=== PATIENT | female | born 1955 | race Caucasian/White ===

== ENCOUNTER 2016-10-02 11:27 | Emergency (ER) | payer OTHER ==
[~2016-10-02] VITALS: Ht 149.8 cm; Wt 88.5 kg
[~2016-10-02 11:27] MED LIST: AVPAK AZITHROM250 M1 PO; BACTRIM DS 8001 TA1 PO; CIPRO500 MG PO; CLARITIN10 MG PO; CLINDAMYCIN150 MG PO; FLUTICASON0.05 MG/AC NAS; KEFLEX500 MG; KEFLEX500 MG PO; LISINOPRIL10 M1 PO; MEDROL DOSEPAK4 MG PO; MOTRIN800 MG PO; PROTONIX40 MG/PACK PO; ROBITUSSIN AC 110 ML PO; ZITHROMAX Z PA250 MG PO; ZITHROMAX250 MG PO; ZOFRAN ODT4 MG SL; ZOFRAN4 MG PO
[2016-10-02] MEDS ORDERED: NAPROSYN500 MG PO (12:02)
== END 2016-10-02 13:36 | disposition home or self-care (01) ==
LOC: ED 11:27
DX: S40.011A Contusion of right shoulder, initial encounter (principal); I10 Essential (primary) hypertension; W19.XXXA Unspecified fall, initial encounter; Y93.9 Activity, unspecified; Y92.9 Unspecified place or not applicable; Y99.9 Unspecified external cause status

== ENCOUNTER 2017-06-07 14:35 | Emergency (ER) | payer OTHER ==
[~2017-06-07] VITALS: Ht 149.8 cm; Wt 87.1 kg
[~2017-06-07 14:35] MED LIST changes: +NAPROSYN500 MG PO
[2017-06-07] MEDS ORDERED: LIDEX 0.05% CRE15 GM T (15:26)
[2017-06-07] MEDS ORDERED: CEPHALEXIN500 M1 PO (15:26)
== END 2017-06-07 15:50 | disposition home or self-care (01) ==
LOC: ED 14:35
DX: L08.9 Local infection of the skin and subcutaneous tissue, unspecified (principal)

== ENCOUNTER 2018-03-06 08:57 | Emergency (ER) | payer OTHER ==
[~2018-03-06] VITALS: Ht 149.8 cm; Wt 131.5 kg
[~2018-03-06 08:57] MED LIST changes: +CEPHALEXIN500 M1 PO; +LIDEX 0.05% CRE15 GM T
[2018-03-06] MEDS ORDERED: DELTASONE20 M1 PO (09:36)
[2018-03-06] MEDS ORDERED: CLARITIN10 MG PO (09:36)
== END 2018-03-06 10:29 | disposition home or self-care (01) ==
LOC: ED 08:57
DX: L23.9 Allergic contact dermatitis, unspecified cause (principal); I10 Essential (primary) hypertension; E78.00 Pure hypercholesterolemia, unspecified

== ENCOUNTER → 2018-04-27 | Outpatient (CLI) | payer OTHER ==
[~2018-04-27] MED LIST changes: +DELTASONE20 M1 PO
== END | disposition home or self-care (01) ==
LOC: MAMMO 08:31
DX: Z12.31 Encounter for screening mammogram for malignant neoplasm of breast (principal)

== ENCOUNTER 2019-04-08 12:27 | Emergency (ER) | payer OTHER ==
[~2019-04-08] VITALS: Ht 149.8 cm; Wt 94.8 kg
--- NOTE | ~2019-04-08 | EKG ---
[place], [place] ELECTROCARDIOGRAM REPORT NAME: PAM GUARDADO UNIT #: [id number] ROOM: DOCTOR: ENRIQUE DRAFT REPORT BIRTHDATE: [birth year] [facility] Test Date: 2019-04-08 Test Time: 12:34:34 Pat Name: PAM GUARDADO Department: Room: Gender: F Independent Marketing Consultant: Karime Hubbard : 1955 Requested By: DANIELA APARICIO Order Number: [id number] Reading MD: Davy Drake MD Measurements Intervals [place] Rate: 85 P: 45 WA: 153 QRS: -19 QRSD: 78 T: 5 QT: 383 QTc: 456 Interpretive Statements Sinus rhythm Left ventricular hypertrophy Inferior infarct, old Anterior Q waves, possibly due to LVH Electronically Signed On 04-11-2019 4:08:54 PDT by Davy Drake MD CM:EKGRPT:ELECTROCARDIOGRAM REPORT [id number] DANIELA NUNEZ DRAFT REPORT DANIELA APARICIO M.D.
[2019-04-08] MEDS ORDERED: NAPROXEN500 MG PO (12:43)
[2019-04-08] MEDS ORDERED: VITAMIN D31000 UNI1 PO (12:44)
[2019-04-08 13:08] LABS: BASO % 0.4 % (0.0-1.0); EOS # 0.1 10*3/uL (0.0-0.4); EOS % 1.7 % (1.0-4.0); HEMATOCRIT 43.7 % (37.0-47.0); HEMOGLOBIN 14.2 g/dl (12.0-16.0); LYMPH # 1.2 10*3/uL (1.3-4.4); LYMPH % 17.7 % (27.0-41.0); MEAN CELL VOLUME 93.2 fl (81.0-99.0); MEAN CORPUSCULAR HGB 30.3 pg (27.0-31.0); MEAN CORPUSCULAR HGB CONC 32.5 g/dl (33.0-37.0); MEAN PLATELET VOLUME 11.5 fl (9.6-12.3); MONO # 0.6 10*3/uL (0.1-1.0); MONO % 9.1 % (3.0-9.0); NEUT # 4.9 10*3/uL (2.3-7.9); NEUT % 70.8 % (47.0-73.0); PLATELET COUNT AUTOMATED 229 10*3/uL (130-400); RED BLOOD COUNT 4.69 10*6/uL (4.10-5.10); RED CELL DISTRI WIDTH 13.4 % (0-14.5)
[2019-04-08 13:21] LABS: ALBUMIN 3.3 gm/dl (3.1-4.5); ALKALINE PHOSPHATASE 114 U/L (45-117); BUN 17 mg/dl (7-24); CHLORIDE 108 mmol/L (98-107); CREATININE 0.75 mg/dL (0.55-1.02); POTASSIUM 3.8 mmol/L (3.5-5.1); SGOT/AST 17 IU/L (3-35); SGPT/ALT 22 U/L (12-78); SODIUM 140 mmol/L (136-145); TOTAL PROTEIN 6.8 gm/dL (6.4-8.2)
[2019-04-08 13:22] LABS: TROPONIN I < 0.015 ng/ml (<0.045)
== END 2019-04-08 14:01 | disposition home or self-care (01) ==
LOC: ED 12:27
PROVIDERS: Emergency Medicine
DX: R55 Syncope and collapse (principal); H53.8 Other visual disturbances; I10 Essential (primary) hypertension; Z79.899 Other long term (current) drug therapy

== ENCOUNTER → 2019-05-03 | Outpatient (CLI) | payer OTHER ==
[~2019-05-03] MED LIST changes: +NAPROXEN500 MG PO; +VITAMIN D31000 UNI1 PO
== END | disposition home or self-care (01) ==
LOC: MAMMO 09:18
DX: Z12.31 Encounter for screening mammogram for malignant neoplasm of breast (principal); M81.0 Age-related osteoporosis without current pathological fracture

== ENCOUNTER 2021-01-02 22:46 | Inpatient (IN) | payer OTHER ==
[~2021-01-02] VITALS: Ht 149.8 cm; Wt 90.7 kg
[2021-01-02 23:03] VITALS: BP 170/80
[2021-01-02 23:36] LABS: BASO % 0.2 % (0.0-1.0); HEMATOCRIT 46.8 % (37.0-47.0); LYMPH # 0.8 10*3/uL (1.3-4.4); LYMPH % 4.2 % (27.0-41.0); MEAN CORPUSCULAR HGB 29.4 pg (27.0-31.0); MEAN CORPUSCULAR HGB CONC 32.7 g/dl (33.0-37.0); MEAN PLATELET VOLUME 10.6 fl (9.6-12.3); MONO # 1.2 10*3/uL (0.1-1.0); MONO % 6.1 % (3.0-9.0); NEUT # 17.7 10*3/uL (2.3-7.9); PLATELET COUNT AUTOMATED 273 10*3/uL (130-400); RED CELL DISTRI WIDTH 13.1 % (0-14.5); WHITE BLOOD COUNT 19.9 10*3/uL (4.8-10.8)
[2021-01-02 23:51] LABS: ALBUMIN 3.2 gm/dl (3.1-4.5); ALKALINE PHOSPHATASE 118 U/L (45-117); BUN 10 mg/dl (7-24); CHLORIDE 104 mmol/L (98-107); CREATININE 0.83 mg/dL (0.55-1.02); LIPASE 68 U/L (73-393); POTASSIUM 3.5 mmol/L (3.5-5.1); SGOT/AST 10 IU/L (3-35); SGPT/ALT 23 U/L (12-78); SODIUM 136 mmol/L (136-145); TOTAL PROTEIN 7.3 gm/dL (6.4-8.2)
[2021-01-02 23:54] LABS: BILIRUBIN Negative (Negative); BLOOD Negative (Negative); CLARITY Clear (Clear); COLOR Orange (Yellow); GLUCOSE Negative (Negative); KETONE 1+ (Negative); LEUKO ESTERASE 1+ (Negative); NITRITE Negative (Negative); PH 5.5 (4.5-8.0); SPECIFIC GRAVITY 1.015 (1.001-1.030); UROBILINOGEN 0.2 E.U./dl (0.0-1.0)
[2021-01-03] VITALS (7 sets, daily range): BP systolic 136–162; BP diastolic 72–93
[2021-01-03] MEDS ORDERED: LISINOPRIL10 M1 PO (02:51)
[2021-01-03] MEDS ORDERED: VITAMIN D350 MC3 PO (02:53)
[2021-01-03 06:08] LABS: ALBUMIN 2.5 gm/dl (3.1-4.5); BUN 8 mg/dl (7-24); CHLORIDE 109 mmol/L (98-107); POTASSIUM 3.4 mmol/L (3.5-5.1); SODIUM 139 mmol/L (136-145)
[2021-01-03 06:14] LABS: ALKALINE PHOSPHATASE 91 U/L (45-117); CHOLESTEROL 122 mg/dL (<200); CREATININE 0.64 mg/dL (0.55-1.02); FREE T4 1.21 ng/dl (0.76-1.46); HDL CHOLESTEROL 58 mg/dl (40-60); LDL CHOLESTEROL 56 mg/dL (9-159); SGPT/ALT 18 U/L (12-78); THYROID STIM HORMONE (HS) 0.475 uIU/ml (0.358-4.75); TRIGLYCERIDES 41 mg/dl (<150); VLDL CHOLESTEROL 8 mg/dL (6-40)
[2021-01-03 06:26] LABS: BASO % 0.2 % (0.0-1.0); EOS % 0.1 % (1.0-4.0); HEMATOCRIT 40.6 % (37.0-47.0); LYMPH # 1.5 10*3/uL (1.3-4.4); LYMPH % 10.4 % (27.0-41.0); MEAN CELL VOLUME 92.5 fl (81.0-99.0); MEAN CORPUSCULAR HGB 29.8 pg (27.0-31.0); MEAN CORPUSCULAR HGB CONC 32.3 g/dl (33.0-37.0); MEAN PLATELET VOLUME 11.3 fl (9.6-12.3); MONO # 1.2 10*3/uL (0.1-1.0); MONO % 7.8 % (3.0-9.0); NEUT # 11.9 10*3/uL (2.3-7.9); NEUT % 81.2 % (47.0-73.0); PLATELET COUNT AUTOMATED 217 10*3/uL (130-400); RED BLOOD COUNT 4.39 10*6/uL (4.10-5.10); RED CELL DISTRI WIDTH 13.1 % (0-14.5); WHITE BLOOD COUNT 14.7 10*3/uL (4.8-10.8)
[2021-01-03 06:47] LABS: SGOT/AST < 3 IU/L (3-35)
[2021-01-03 08:02] LABS: VITAMIN D, 25-HYDROXY 24.1 ng/mL (30-100)
[2021-01-04] VITALS: BP 131/80
[2021-01-04 04:48] LABS: BASO % 0.2 % (0.0-1.0); EOS # 0.1 10*3/uL (0.0-0.4); EOS % 1.7 % (1.0-4.0); HEMATOCRIT 39.4 % (37.0-47.0); LYMPH # 1.2 10*3/uL (1.3-4.4); LYMPH % 14.5 % (27.0-41.0); MEAN CELL VOLUME 92.5 fl (81.0-99.0); MEAN CORPUSCULAR HGB 29.6 pg (27.0-31.0); MEAN PLATELET VOLUME 10.9 fl (9.6-12.3); MONO # 0.8 10*3/uL (0.1-1.0); MONO % 8.9 % (3.0-9.0); NEUT # 6.2 10*3/uL (2.3-7.9); NEUT % 74.3 % (47.0-73.0); PLATELET COUNT AUTOMATED 200 10*3/uL (130-400); RED BLOOD COUNT 4.26 10*6/uL (4.10-5.10); RED CELL DISTRI WIDTH 13.2 % (0-14.5); WHITE BLOOD COUNT 8.4 10*3/uL (4.8-10.8)
[2021-01-04 05:13] LABS: ALBUMIN 2.5 gm/dl (3.1-4.5); CHLORIDE 111 mmol/L (98-107); POTASSIUM 3.4 mmol/L (3.5-5.1); SODIUM 140 mmol/L (136-145)
[2021-01-04 05:22] LABS: ALKALINE PHOSPHATASE 87 U/L (45-117); BUN 8 mg/dl (7-24); CREATININE 0.59 mg/dL (0.55-1.02); SGOT/AST 10 IU/L (3-35); SGPT/ALT 17 U/L (12-78); TOTAL PROTEIN 5.8 gm/dL (6.4-8.2)
[2021-01-04 08:00] VITALS: BP 122/65
[2021-01-04 12:00] VITALS: BP 174/91
[2021-01-04] MEDS ORDERED: FLAGYL500 MG PO (13:37)
[2021-01-04] MEDS ORDERED: ONDANSETRON4 MG/2 M3 IV (13:37)
[2021-01-04] MEDS ORDERED: CIPRO500 MG PO (13:37)
== END 2021-01-04 14:32 | disposition home or self-care (01) | DRG 720 ==
LOC: ED 22:46 → 4E 01-03 01:42 → EDHOLD 01-03 01:42 → 4E 01-03 01:58
PROVIDERS: Internal Medicine; ADMIT Student in an Organized Health Care Education/Training Program; ATTEND Student in an Organized Health Care Education/Training Program
DX: A41.9 Sepsis, unspecified organism (principal); E43 Unspecified severe protein-calorie malnutrition; R73.9 Hyperglycemia, unspecified; E80.6 Other disorders of bilirubin metabolism; K57.20 Diverticulitis of large intestine with perforation and abscess without bleeding; R74.8 Abnormal levels of other serum enzymes; R82.71 Bacteriuria; R65.20 Severe sepsis without septic shock; I10 Essential (primary) hypertension; E87.6 Hypokalemia; E83.39 Other disorders of phosphorus metabolism; Z82.49 Family history of ischemic heart disease and other diseases of the circulatory system; Z79.899 Other long term (current) drug therapy; Z68.1 Body mass index [BMI] 19.9 or less, adult

== ENCOUNTER → 2021-06-16 | Outpatient (CLI) | payer OTHER ==
[~2021-06-16] MED LIST changes: +FLAGYL500 MG PO; +ONDANSETRON4 MG/2 M3 IV; +VITAMIN D350 MC3 PO
[2021-06-16 12:40] LABS: HEMATOCRIT 50.4 % (37.0-47.0); MEAN CELL VOLUME 91.6 fl (81.0-99.0); MEAN CORPUSCULAR HGB 29.5 pg (27.0-31.0); MEAN CORPUSCULAR HGB CONC 32.1 g/dl (33.0-37.0); MEAN PLATELET VOLUME 11.3 fl (9.6-12.3); RED BLOOD COUNT 5.5 10*6/uL (4.10-5.10); RED CELL DISTRI WIDTH 13.6 % (0-14.5)
[2021-06-16 12:57] LABS: ALBUMIN 3.7 gm/dl (3.1-4.5); BUN 20 mg/dl (7-24); CHLORIDE 106 mmol/L (98-107); CHOLESTEROL 223 mg/dL (<200); POTASSIUM 4.1 mmol/L (3.5-5.1); SGOT/AST 22 IU/L (3-35); SGPT/ALT 34 U/L (12-78); SODIUM 138 mmol/L (136-145); TOTAL PROTEIN 7.5 gm/dL (6.4-8.2); TRIGLYCERIDES 118 mg/dl (<150)
[2021-06-16 13:07] LABS: ALKALINE PHOSPHATASE 126 U/L (45-117); LDL CHOLESTEROL 140 mg/dL (9-159)
== END | disposition home or self-care (01) ==
LOC: LAB 11:51
PROVIDERS: ATTEND Family Medicine
DX: Z13.1 Encounter for screening for diabetes mellitus (principal); Z13.220 Encounter for screening for lipoid disorders; I10 Essential (primary) hypertension

== ENCOUNTER 2021-11-25 15:46 | Emergency (ER) | payer OTHER | END 2021-11-25 18:49 | disposition home or self-care (01) | LOC: ED 15:46 | DX: S02.2XXA Fracture of nasal bones, initial encounter for closed fracture (principal); S20.212A Contusion of left front wall of thorax, initial encounter; W18.39XA Other fall on same level, initial encounter; Y93.89 Activity, other specified; Y92.89 Other specified places as the place of occurrence of the external cause; Y99.8 Other external cause status ==

== ENCOUNTER → 2022-04-15 | Outpatient (CLI) | payer OTHER | END | disposition home or self-care (01) | LOC: COVID19 01:38 | PROVIDERS: ATTEND Family Medicine | DX: Z20.822 Contact with and (suspected) exposure to COVID-19 (principal) ==

== ENCOUNTER 2023-01-02 00:45 | Emergency (ER) | payer OTHER ==
[~2023-01-02] VITALS: Ht 180.3 cm; Wt 90.7 kg
== END 2023-01-02 04:20 | disposition home or self-care (01) ==
LOC: ED 00:45
DX: S56.415A Strain of extensor muscle, fascia and tendon of right ring finger at forearm level, initial encounter (principal); S80.02XA Contusion of left knee, initial encounter; E78.5 Hyperlipidemia, unspecified; E87.6 Hypokalemia; I10 Essential (primary) hypertension; E83.39 Other disorders of phosphorus metabolism; E80.6 Other disorders of bilirubin metabolism; Z98.890 Other specified postprocedural states; Y04.8XXA Assault by other bodily force, initial encounter; Y93.89 Activity, other specified; Y92.89 Other specified places as the place of occurrence of the external cause; Y99.8 Other external cause status